=== PATIENT | male | born 1980 | race Caucasian/White ===

== ENCOUNTER 2018-03-24 03:35 | Observation (INO) ==
[2018-03-24 05:42] LABS: Baso # (Auto) 0.1 th/mm3 (0.0-0.2); Eos # (Auto) 0.3 th/mm3 (0.0-0.4); Eos % (Auto) 4.5 % (0.0-4.0); Hematocrit 48.1 % (39.0-51.0); Hemoglobin 15.4 gm/dL (13.0-17.0); Lymph # (Auto) 2.3 th/mm3 (1.0-4.8); Lymph % (Auto) 30.4 % (9.0-44.0); Mean Corpuscular Hemoglobin 26.1 pg (27.0-34.0); Mean Corpuscular Volume 81.6 fL (80.0-100.0); Mean Platelet Volume 9.5 fL (7.0-11.0); Mono # (Auto) 0.5 th/mm3 (0.0-0.9); Mono % (Auto) 5.9 % (0.0-8.0); Neut # (Auto) 4.5 th/mm3 (1.8-7.7); Neut % (Auto) 58.2 % (16.0-70.0); Platelet Count 170 th/mm3 (150-450); Red Cell Distribution Width 13.5 % (11.6-17.2); White Blood Count 7.7 th/mm3 (4.0-11.0)
--- NOTE | 2018-03-24 05:58 | XR ---
EXAM DATE: 03/24/2018 5:26 AM EST AGE/SEX: 38 years / Male INDICATIONS: Right great toe pain, no known trauma. CLINICAL DATA: This is the patient's initial encounter. Patient reports that signs and symptoms have been present for 3 days and indicates a pain score of 6/10. MEDICAL/SURGICAL HISTORY: Diabetes mellitus type II. None. COMPARISON: . FINDINGS: No fracture is seen. The bones and joints are normally aligned. There is a calcaneal spur at the Achi lles attachment site. There is some spurring at the dorsal aspect of the talus. Soft tissues are unre markable. CONCLUSION: No acute abnormality is seen. Electronically signed by: Ryne Valdivia MD Board Certified Radiologist 03/24/2018 5:57 AM EST
[2018-03-24 06:23] LABS: Chloride 106 meq/L (98-107); Potassium 3.8 meq/L (3.5-5.1); Sodium 138 meq/L (136-145)
[2018-03-24 06:25] LABS: Calcium 8.4 mg/dL (8.5-10.1)
[2018-03-24 06:26] LABS: Anion Gap 6 meq/L (5-15); Blood Urea Nitrogen 15 mg/dL (7-18); Carbon Dioxide 26.1 meq/L (21.0-32.0); Glucose,Random 126 mg/dL (74-106)
[2018-03-24 06:29] LABS: C-Reactive Protein 0.63 mg/dL (0.00-0.30); Glomerular Filtration Rate Greater Than 89 mL/min (>89)
--- NOTE | 2018-03-24 06:39 | ED ---
HPI General Chief complaint: Extremity Injury, Lower Stated complaint: RT big toe turning purple/pain x 3 days Time Seen by Provider: 03/24/18 04:10 Source: patient Mode of arrival: ambulatory Limitations: no limitations History of Present Illness HPI narrative: 38-year-old male presents emergency department complaining of pain in his right great toe and second and third toe with purple discoloration and paresthesias and tingling. States this came on fairly abruptly over the past 2-3 days. Never had trouble with a history of type 2 diabetes. No history of neuropathy. No history of vascular disease. No other complaints. Related Data Home Medications Medication Instructions Recorded Confirmed metformin 850 mg PO BID 03/24/18 03/24/18 Allergies Allergy/AdvReac Type Severity Reaction Status Date / Time No Known Allergies Allergy Verified 03/24/18 05:00 Review of Systems ROS: all other systems reviewed are negative [facility] Medical History Medical History Diabetes (Acute) Social History Social History Substance History: No History of Abuse Smoking Status: Former smoker How Often Do You Have a Drink Containing Alcohol: Never Recent Travel in [facility] within the Last 8 Weeks: No Recent Out of Country Travel within the Last 8 Weeks: No Immunization History Tetanus Immunization: <5 Years Exam Narrative Exam Narrative: GENERAL: Well-appearing 38-year-old man, no acute distress. SKIN: Focused skin assessment warm/dry. HEAD: Atraumatic. Normocephalic. EYES: Pupils equal and round. No scleral icterus. No injection or drainage. ENT: No nasal bleeding or discharge. Mucous membranes pink and moist. NECK: Trachea midline. No JVD. CARDIOVASCULAR: Regular rate and rhythm. No murmur appreciated. RESPIRATORY: No accessory muscle use. Clear to auscultation. Breath sounds equal bilaterally. GASTROINTESTINAL: Abdomen soft, non-tender, nondistended. Hepatic and splenic margins not palpable. MUSCULOSKELETAL: Purplish bluish discoloration to the great toe with second and third toe. The toe itself, the capillary refill appears brisk possibly due to rubor, but is sluggish just proximal to the purplish discoloration. DP pulse on the right is strong with Doppler. Unable to appreciate digital pulses on the first 3 digits. On the left, unaffected foot, digital pulses are easily appreciated with the Doppler. NEUROLOGICAL: Awake and alert. No obvious cranial nerve deficits. Motor grossly within normal limits. Normal speech. PSYCHIATRIC: Appropriate mood and affect; insight and judgment normal. Course Initial Documented Vital Signs Temperature 97.8 F 03/24/18 03:39 Pulse Rate 90 03/24/18 03:39 Respiratory Rate 18 03/24/18 03:39 Blood Pressure 169/104 H 03/24/18 03:39 Pulse Oximetry 96 03/24/18 03:39 Last Documented Vital Signs Temperature 97.8 F 03/24/18 03:39 Pulse Rate 90 03/24/18 03:39 Respiratory Rate 18 03/24/18 03:39 Blood Pressure 169/104 H 03/24/18 03:39 Pulse Oximetry 96 03/24/18 03:39 Medical Decision Making MDM Narrative Medical decision making narrative: 38-year-old man with what appears to be vascular insufficiency in this first through third toes. Etiology is unclear. Possibly embolic phenomenon. Possibly but less likely atherosclerotic phenomenon. This does not seem to be Shahab's phenomenon. X-ray does not show any kind of occult injury. Discussed with podiatry. Will need further eval for possible sources of insufficiency, especially given his young age. Plan on admission. Medical Screen Exam Complete: Yes Emergency Medical Condition: Yes Lab Data Lab results reviewed: Yes I reviewed the patient's lab results. Result diagrams: 03/24/18 05:23 03/24/18 06:08 Lab Results 03/24/18 03/24/18 03/24/18 Range/Units 03:55 05:23 06:08 CBC w Diff Auto diff final WBC 7.7 (4.0-11.0) th/mm3 RBC 5.90 (4.50-5.90) mil/mm3 Hgb 15.4 (13.0-17.0) gm/dL Hct 48.1 (39.0-51.0) % MCV 81.6 (80.0-100.0) fL MCH 26.1 L (27.0-34.0) pg MCHC 32.0 (32.0-36.0) % RDW 13.5 (11.6-17.2) % Plt Count 170 (150-450) th/mm3 MPV 9.5 (7.0-11.0) fL Neut % (Auto) 58.2 (16.0-70.0) % Lymph % (Auto) 30.4 (9.0-44.0) % [place] % (Auto) 5.9 (0.0-8.0) % Eos % (Auto) 4.5 H (0.0-4.0) % Baso % (Auto) 1.0 (0.0-2.0) % Neut # (Auto) 4.5 (1.8-7.7) th/mm3 Lymph # (Auto) 2.3 (1.0-4.8) th/mm3 [place] # (Auto) 0.5 (0.0-0.9) th/mm3 Eos # (Auto) 0.3 (0.0-0.4) th/mm3 Baso # (Auto) 0.1 (0.0-0.2) th/mm3 WBC Differential . Differential Comment . Sodium 138 (136-145) meq/L Potassium 3.8 (3.5-5.1) meq/L Chloride 106 (98-107) meq/L Carbon Dioxide 26.1 (21.0-32.0) meq/L Anion Gap 6 (5-15) meq/L BUN 15 (7-18) mg/dL Creatinine 0.83 (0.60-1.30) mg/dL Estimated GFR Greater than 89 (>89) mL/min POC Glucose 120 H (68-110) mg/dl Random Glucose 126 H (74-106) mg/dL Calcium 8.4 L (8.5-10.1) mg/dL C-Reactive Protein 0.63 H (0.00-0.30) mg/dL Imaging Data Radiologist's impression: Foot X-Ray 03/24/18 05:00 CONCLUSION: No acute abnormality is seen. Discharge Plan Discharge Disposition Patient Disposition: ED Admit(ED Internal Use Only) Discharge Order Discharge Orders: ED Use Only Admit Order (Routine); Ordered 03/24/18 Ordered By: Nahun Moreno Physicians Team ED Provider: Nahun Moreno Primary Care Provider: Primary Care Mariah Sanford Rxs /Orders / Referrals /Forms Prescriptions: No Action metformin 850 mg Tablet 850 mg PO BID RF: 0 Discharge Interventions Interventions: Vital Signs Last Done: 03/24/18 03:39 Status ED Status: With Doctor
[2018-03-24] MEDS ORDERED: Acetaminophen 325 MG Tablet PO PRN ×2 (06:46→16:18)
[2018-03-24] MEDS ORDERED: Bisacodyl 10 MG Supp RECTAL PRN (06:46)
[2018-03-24] MEDS ORDERED: Dextrose 50% in Water 50 ML Vial IV.PUSH PRN (06:48)
[2018-03-24] MEDS: Insulin NovoLOG Aspart Correctional Sugar Inj SQ SCH ×4 (08:35→21:25)
--- NOTE | 2018-03-24 11:05 | P.CONVS ---
History of Present Illness Service: Vascular surgery Consult date: 03/24/18 Primary Care Provider: No Primary Care Physician Chief Complaint: Right first toe discoloration History of Present Illness: 38-year-old male with insignificant past medical history. He presents with a chief complaint of 3 days history of right first toe discoloration. He also reports pain and numbness of the first great toe. He denies any claudication or rest pain. He denies any shortness of breath or chest pain. Review of Systems All other systems reviewed negative except as stated in HPI PMFSH - History History Provided By: Patient - Medical History Medical History: Medical History (Last Updated 03/24/18 @ 06:36 by Nahun Moreno MD) Diabetes - Tobacco History Second Hand Smoke Exposure: Yes Tobacco Use In Past 30 Days: Yes Smoking Status: Former smoker Tobacco Type: Cigarettes - Alcohol History How Often Do You Have a Drink Containing Alcohol: 2 to 4 times a month - Substance Use History Substance History: No History of Abuse - Travel History Recent Travel in the [place] Within the Last 8 Weeks: Yes Recent Travel Out of the Country Within the Last 8 Weeks: No - Immunization History Tetanus Immunization: <5 Years Medications and Allergies Active Medications: Active Medications Acetaminophen (Tylenol) 650 mg PO Q4H PRN PRN Reason: Temp > 100.4 Last Admin: 03/24/18 10:25 Dose: 650 mg Bisacodyl (Dulcolax Supp) 10 mg RECTAL DAILY PRN PRN Reason: SEVERE CONSITIPATION Dextrose (D50w Vial) 50 ml IV.PUSH UNSCH PRN PRN Reason: PER HYPOGLYCEMIA PROTOCOL Glucagon (Glucagon Inj) 1 mg OTHER PRN PRN PRN Reason: for Hypoglycemia Protocol Insulin Aspart (Novolog Insulin Correctional Sugar Inj) 0 unit SQ ACHS AND 3AM MARY; Protocol Last Admin: 03/24/18 08:35 Dose: Not Given Ondansetron HCl (Zofran Inj) 4 mg IV.PUSH Q6H PRN PRN Reason: NAUSEA OR VOMITING Sennosides (Senokot) 17.2 mg PO Q12H PRN PRN Reason: Moderate Constipation Sodium Chloride (Ns Flush) 2 ml IV.FLUSH BID MARY Last Admin: 03/24/18 10:26 Dose: 2 ml Sodium Chloride (Ns Flush) 2 ml IV.FLUSH PRN PRN PRN Reason: FLUSH AFTER USING IV ACCESS Allergies Allergy/AdvReac Type Severity Reaction Status Date / Time No Known Allergies Allergy Verified 03/24/18 05:00 Home Medications Medication Instructions Recorded Confirmed Type metformin 850 mg PO BID 03/24/18 03/24/18 History Physical Exam Vital Signs / I&O: Vital Signs 03/24/18 03:39 03/24/18 08:34 03/24/18 08:50 Temperature 97.8 F Pulse Rate 90 81 Respiratory Rate 18 18 Blood Pressure 169/104 H 198/101 H 164/87 H Pulse Oximetry 96 98 03/24/18 10:02 Temperature 97.8 F Pulse Rate 67 Respiratory Rate 20 Blood Pressure 151/90 H Pulse Oximetry 97 Intake & Output 03/23/18 03/24/18 03/24/18 18:59 06:59 18:59 Weight 142 kg 141.974 kg Other: Weight On Admission 142 kg Neuro: Alert awake oriented x3 with no neurological deficits. HEENT: Normocephalic atraumatic Neck: Supple Heart: S1-S2 Lungs: Clear to auscultation bilateral Abdomen: Soft nontender nondistended Vascular: +2 palpable left DP, PT. +1 palpable right dorsalis pedis, posterior tibial pulse. No evidence of popliteal or femoral aneurysms palpated bilaterally. Extremities: Right first with livedo reticularis and bluish discoloration Laboratory Results - last 24 hr 03/24/18 03/24/18 03/24/18 03:55 05:23 05:23 CBC w Diff Auto diff final WBC 7.7 RBC 5.90 Hgb 15.4 Hct 48.1 MCV 81.6 MCH 26.1 L MCHC 32.0 RDW 13.5 Plt Count 170 MPV 9.5 Neut % (Auto) 58.2 Lymph % (Auto) 30.4 [place] % (Auto) 5.9 Eos % (Auto) 4.5 H Baso % (Auto) 1.0 Neut # (Auto) 4.5 Lymph # (Auto) 2.3 [place] # (Auto) 0.5 Eos # (Auto) 0.3 Baso # (Auto) 0.1 WBC Differential . Differential Comment . ESR 1 Sodium Potassium Chloride Carbon Dioxide Anion Gap BUN Creatinine Estimated GFR POC Glucose 120 H Random Glucose Calcium C-Reactive Protein 03/24/18 03/24/18 06:08 08:29 CBC w Diff WBC RBC Hgb Hct MCV MCH MCHC RDW Plt Count MPV Neut % (Auto) Lymph % (Auto) [place] % (Auto) Eos % (Auto) Baso % (Auto) Neut # (Auto) Lymph # (Auto) [place] # (Auto) Eos # (Auto) Baso # (Auto) WBC Differential Differential Comment ESR Sodium 138 Potassium 3.8 Chloride 106 Carbon Dioxide 26.1 Anion Gap 6 BUN 15 Creatinine 0.83 Estimated GFR Greater than 89 POC Glucose 182 H Random Glucose 126 H Calcium 8.4 L C-Reactive Protein 0.63 H Impressions Foot X-Ray 03/24/18 05:00 CONCLUSION: No acute abnormality is seen. 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 No evidence of acute limb ischemia. I will obtain a CT angiography of the chest abdomen pelvis with runoff to evaluate for atherosclerotic disease versus aneurysmal disease. Care for allowing us to participate in this patient care, if you have any questions please do not hesitate to call my cell phone Ghassan Muñoz MD [facility] [phone]
--- NOTE | 2018-03-24 13:07 | CT ---
EXAM DATE: 03/24/2018 12:25 PM EST AGE/SEX: 38 years / Male INDICATIONS: Vascular insufficiency right foot. CLINICAL DATA: This is the patient's initial encounter. Patient reports that signs and symptoms have been present for 3 days and indicates a pain score of 6/10. MEDICAL/SURGICAL HISTORY: Diabetes. None. RADIATION DOSE: 9.73 CTDI (mGy) COMPARISON: No prior exams available for comparison. TECHNIQUE: Volumetric scanning was performed using a multi-row detector CT scanner during bolus infu emeka of 100 ml Omnipaque 350 (iohexol) nonionic water-soluble contrast as a single exam dose. The data was post processed with a variety of visualization algorithms including full volume maximum inte nsity projection, multi-planar sliding thin slab reformation, curved planar reformation, and surface rendering techniques. Using automated exposure control and adjustment of the mA and/or kV according to patient size, radiation dose was kept as low as reasonably achievable to obtain optimal diagnostic quality images. DICOM format image data is available electronically for review and comparison. FINDINGS: Abdominal aorta: The celiac and SMA origins are widely patent. There are single renal arteries bilate rally. The renal arteries are widely patent. The infrarenal aorta is normal in caliber. The KASEY is pa tent. There is no significant atherosclerotic disease identified. Pelvic circulation: The common iliac, internal iliac and external iliac circulation is widely patent bilaterally. Of note, there is reconstruction artifact on the 3-D reconstructed images. Right leg: The right common femoral and profunda femoral are widely patent. Examination of the superf icial femoral demonstrates a focal subtotal occlusion at the junction of the distal SFA and above-kne e popliteal. The popliteal returns to a more normal caliber in its proximal segment. The exam does de monstrate a focal area of high-grade stenosis in its below-knee segment as well. Distally, all 3 trif urcation vessels are patent. Left leg: The left common femoral, profunda femoral, superficial femoral and popliteal arteries are w idely patent. Distally, all 3 trifurcation vessels are patent down into the foot. CONCLUSION: 1. The examination demonstrates a focal high-grade stenosis/subtotal occlusion in the right superfic ial femoral at its junction with the above-knee popliteal. In addition, there is a second area of hig h-grade stenosis in the below-knee popliteal on the right as well. There is no other significant vasc ular disease identified. The lack of other significant disease elsewhere would suggest this probably represents atherosclerotic disease however in a patient of this age an underlying vasculitis would be a consideration as well. No findings to indicate an embolic source are identified. Electronically signed by: Delta Bain MD Board Certified Radiologist 03/24/2018 1:06 PM EST
[2018-03-24] MEDS ORDERED: Naloxone Inj 0.4 MG/ML Vial IV.PUSH PRN (16:18)
--- NOTE | 2018-03-24 16:27 | P.HPIM ---
History of Present Illness Primary Care Physician: No Primary Care Physician Chief Complaint: Right toe pain and discoloration History of Present Illness: 38-year-old white male with a history of type 2 diabetes mellitus sent to the emergency room with a 3-day history of acute worsening pain of the right great toe with purple discoloration associated with some tingling and numbness of the second and third toes. Patient denies any trauma to the area. He had a previous history of smoking 1 pack of sugars on daily basis but quit 20 days ago. He reports his blood sugars relatively controlled well and denies a history of diabetic neuropathy. He denies any pain upon sitting or ambulating of his legs. He has not complained of associated chest pain palpitations nor any shortness of breath. He denies any abdominal pain and had no complaints of associated nausea vomiting nor any recent chills or fever. Diagnosis (1) Trash foot: (2) Blue toe syndrome of right lower extremity: Review of Systems Constitutional: Reports as per HPI, Denies body ache(s), Denies chills, Denies fever(s), Denies frequent falls and Denies headache(s) Eyes: Denies blurry vision, Denies change in vision and Denies eye pain Ears, Nose, Mouth, and Throat: Denies abnormal hearing, Denies headache(s), Denies mouth pain, Denies nasal congestion, Denies neck pain and Denies sore throat Cardiovascular: Reports as per HPI, Reports bluish discoloration of hand/feet ( Right great toe as discussed in HPI.), Denies chest pain, Denies diaphoresis, Denies syncope, Denies rapid heart rate, Denies pedal edema, Denies irregular heart rhythm, Denies palpitations and Denies dyspnea Respiratory: Denies cough and Denies dyspnea Gastrointestinal: Denies abdominal pain, Denies constipation, Denies loose stools, Denies nausea and Denies vomiting Musculoskeletal: Denies back pain, Denies myalgias, Denies arthralgias, Denies muscle weakness, Denies neck pain, Reports numbness, Denies stiffness and Reports tingling Comments: Second and third toe Skin/Breast: Denies new lesions and Denies rash Neurologic: Denies abnormal hearing, Denies headache(s), Denies focal weakness, Denies memory loss and Denies numbness Psychiatric: Denies anxiety, Denies depression and Denies memory loss Endocrine: Denies cold intolerance, Denies heat intolerance and Denies palpitations Hematologic/Lymphatic: Denies easy bleeding and Denies easy bruising PMFSH History History Provided By: Patient Medical History Medical History Diabetes (Chronic) Surgical History Surgical History No history of previous surgery (Chronic) Social History Social History Substance History: No History of Abuse Second Hand Smoke Exposure: Yes Smoking Status: Former smoker Tobacco Type: Cigarettes How Often Do You Have a Drink Containing Alcohol: 2 to 4 times a month Recent Travel in [facility] within the Last 8 Weeks: Yes Recent Out of Country Travel within the Last 8 Weeks: No Immunization History Tetanus Immunization: <5 Years Medications and Allergies Allergies Allergy/AdvReac Type Severity Reaction Status Date / Time No Known Allergies Allergy Verified 03/24/18 05:00 Home Medications Medication Instructions Recorded Confirmed Type metformin 850 mg PO BID 03/24/18 03/24/18 History Active Medications: Active Medications Acetaminophen (Tylenol) 650 mg PO Q4H PRN PRN Reason: Temp > 100.4 Last Admin: 03/24/18 10:25 Dose: 650 mg Acetaminophen (Tylenol) 650 mg PO Q6HR PRN PRN Reason: PAIN SCALE 1 TO 5 Hydrocodone Bitart/Acetaminophen ([place] 5/325) 1 tab PO Q4H PRN PRN Reason: PAIN SCALE 6 TO 10 Aspirin (Aspirin) 325 mg PO DAILY MARY Bisacodyl (Dulcolax Supp) 10 mg RECTAL DAILY PRN PRN Reason: SEVERE CONSITIPATION Dextrose (D50w Vial) 50 ml IV.PUSH UNSCH PRN PRN Reason: PER HYPOGLYCEMIA PROTOCOL Glucagon (Glucagon Inj) 1 mg OTHER PRN PRN PRN Reason: for Hypoglycemia Protocol Sodium Chloride (Ns Inj) 1,000 mls @ 100 mls/hr IV.CONT .Q10H MARY Insulin Aspart (Novolog Insulin Correctional Sugar Inj) 0 unit SQ ACHS MARY; Protocol Naloxone HCl (Narcan Inj) 0.4 mg IV.PUSH UNSCH PRN PRN Reason: SEE LABEL COMMENTS Ondansetron HCl (Zofran Inj) 4 mg IV.PUSH Q6H PRN PRN Reason: NAUSEA OR VOMITING Sennosides (Senokot) 17.2 mg PO Q12H PRN PRN Reason: Moderate Constipation Sodium Chloride (Ns Flush) 2 ml IV.FLUSH BID MARY Last Admin: 03/24/18 10:26 Dose: 2 ml Sodium Chloride (Ns Flush) 2 ml IV.FLUSH PRN PRN PRN Reason: FLUSH AFTER USING IV ACCESS Physical Exam Vital signs: Last Vital Signs Temp 98.0 F 03/24/18 16:13 Pulse 69 03/24/18 16:13 Resp 20 03/24/18 16:13 BP 176/101 H 03/24/18 16:13 Pulse Ox 97 03/24/18 16:13 Intake & Output 03/22/18 03/23/18 03/24/18 03/25/18 06:59 06:59 06:59 06:59 Weight 142 kg 141.974 kg Narrative: GENERAL: Well-nourished obese white male pleasant in no acute distress SKIN: Warm and dry. HEAD: Atraumatic. Normocephalic. EYES: Pupils equal and round. No scleral icterus. No injection or drainage. ENT: No nasal bleeding or discharge. Mucous membranes pink and moist. NECK: Trachea midline. No JVD. CARDIOVASCULAR: Regular rate and rhythm. Good 2+ Right DP and PT pulses, left DP and PT pulse. RESPIRATORY: No accessory muscle use. Clear to auscultation. Breath sounds equal bilaterally. GASTROINTESTINAL: Abdomen soft, non-tender, obese, nondistended. Normoactive bowel sounds MUSCULOSKELETAL: Right great toe with purplish discoloration, no discoloration of the second third fourth and fifth toes. NEUROLOGICAL: Awake and alert to person place time and situation. No obvious cranial nerve deficits. Motor grossly within normal limits. Five out of 5 muscle strength in the arms and legs. Normal speech. PSYCHIATRIC: Appropriate mood and affect; insight and judgment normal. Results Labs CBC & Chem 7: 03/25/18 06:40 03/25/18 06:40 Imaging Impressions Aorta w/Runoff CTA 03/24/18 00:00 CONCLUSION: 1. The examination demonstrates a focal high-grade stenosis/subtotal occlusion in the right superficial femoral at its junction with the above-knee popliteal. In addition, there is a second area of high-grade stenosis in the below-knee popliteal on the right as well. There is no other significant vascular disease identified. The lack of other significant disease elsewhere would suggest this probably represents atherosclerotic disease however in a patient of this age an underlying vasculitis would be a consideration as well. No findings to indicate an embolic source are identified. Foot X-Ray 03/24/18 05:00 CONCLUSION: No acute abnormality is seen. Caprini VTE Risk Assessment Caprini VTE Risk Assessment: No/Low Risk (score <= 1) Caprini Risk Assessment Model: Point Value = 1 Point Value = 2 Point Value = 3 Point Value = 5 Age 41-60 Minor surgery BMI > 25 kg/m2 Swollen legs Varicose veins or History of unexplained or recurrent spontaneous Oral contraceptives or hormone replacement Sepsis (< 1 month) Serious lung disease, including pneumonia (< 1 month) Abnormal pulmonary function Acute myocardial infarction Congestive heart failure (< 1 month) History of inflammatory bowel disease Medical patient at bed rest Age 61-74 Arthroscopic surgery Major open surgery (> 45 min) Laparoscopic surgery (> 45 min) Malignancy Confined to bed (> 72 hours) Immobilizing plaster cast Central venous access Age >= 75 History of VTE Family history of VTE Factor V Leiden Prothrombin [id number] Lupus anticoagulant Anticardiolipin antibodies Elevated serum homocysteine Heparin-induced thrombocytopenia Other congenital or acquired thrombophilia Stroke (< 1 month) Elective arthroplasty Hip, pelvis, or leg fracture Acute spinal cord injury (< 1 month) Prophylaxis Regimen: Total Risk Factor Score Risk Level Prophylaxis Regimen 0-1 Low Early ambulation 2 Moderate Order ONE of the following: *Sequential Compression Device (SCD) *Heparin 5000 units SQ BID 3-4 Higher Order ONE of the following medications: *Heparin 5000 units SQ TID *Enoxaparin/Lovenox 40 mg SQ daily (WT < 150 kg, CrCl > 30 mL/min) *Enoxaparin/Lovenox 30 mg SQ daily (WT < 150 kg, CrCl > 10-29 mL/min) *Enoxaparin/Lovenox 30 mg SQ BID (WT < 150 kg, CrCl > 30 mL/min) AND/OR *Sequential Compression Device (SCD) 5 or more Highest Order ONE of the following medications: *Heparin 5000 units SQ TID (Preferred with Epidurals) *Enoxaparin/Lovenox 40 mg SQ daily (WT < 150 kg, CrCl > 30 mL/min) *Enoxaparin/Lovenox 30 mg SQ daily (WT < 150 kg, CrCl > 10-29 mL/min) *Enoxaparin/Lovenox 30 mg SQ BID (WT < 150 kg, CrCl > 30 mL/min) AND *Sequential Compression Device (SCD) Assessment and Plan (1) Trash foot: Code(s): I96 - Gangrene, not elsewhere classified; I75.029 - Atheroembolism of unspecified lower extremity Status: Acute (2) Blue toe syndrome of right lower extremity: Code(s): I75.021 - Atheroembolism of right lower extremity Status: Acute Plan 38-year-old white male with a history of diabetes mellitus type 2 presents with 3-day history of acute worsening right great toe pain and discoloration Suspect blue toe syndrome rule out lower extremity ischemia CTA runoff with IV contrast discussed with Dr. Muñoz, vascular surgery, patient has a focal high-grade stenosis subtotal occlusion in the right superficial femoral above the knee popliteal and a second area of high-grade stenosis and below the knee popliteal on the right. Continue aspirin Heparin not indicated at this time per vascular surgery. He is recommending IV CT chest with IV contrast for further evaluation ESR level 4, CRP 0.63 and MALACHI to rule out vasculitis. Check fasting lipid profile Pain control. Diabetes mellitus type 2hold metformin, continue glucose monitoring with sliding scale insulin. H&P: Quality VTE Deep Vein Thrombosis/Pulmonary Embolism Present on Admission: No
[2018-03-24] MEDS: Aspirin 325 MG Tablet PO SCH (17:14)
[2018-03-24] MEDS: Sod Chloride 0.9% Inj 1,000 ML IV.CONT SCH (17:14)
--- NOTE | 2018-03-24 19:19 | MB ---
cc: Nando Alejandra DPM DATE: 03/24/2018 REASON FOR CONSULTATION: Right foot pain, purple toe with no obvious injury. HISTORY OF PRESENT ILLNESS: This is a 38-year-old male with a history of right great toe worsening over the last 2-3 days. The patient states he took a flight from out of town and when he landed, he had significant pain and discoloration of the toe. The patient has no history of neuropathy, vascular disease or type 2 diabetes. The patient was seen in the ED earlier this morning. I was notified by the ER doctor of the complaints. I recommended transfer to the [facility] for vascular evaluation. The patient says that the purple discoloration and pain have somewhat improved since this morning. PAST MEDICAL HISTORY: Recent history, diagnosed with diabetes, apparently upon this admission. ALLERGIES: NO KNOWN DRUG ALLERGIES. SOCIAL HISTORY: Previous smoker. Drinking 2-4 times a month. SUBSTANCE ABUSE: None. INPATIENT MEDICATIONS: Reviewed. He is receiving aspirin 325 p.r.n. PHYSICAL EXAMINATION: VITAL SIGNS: Temperature is 97.8, pulse rate 67, respiratory rate 20, blood pressure 151/90, saturating 97% on room air. GENERAL: This is an alert and oriented gentleman seen at bedside exhibiting nonlabored respiration. Of note, body mass index is 40. Mildly obese male. EXTREMITIES: Bilateral lower extremities are examined. There is noted to be a purple blanchable discoloration of the plantar hallux. There is pain upon palpation to the hallux and lesser digits. The foot is not cool. It has some capillary fill time; however, appears to be different to the contralateral. Pulses are palpable pulses. Sensation is intact to light touch and deep pressure. There is no pain with range of motion of proximal digits, forefoot, hindfoot or ankle. Pain appears to be more distal aspect of the right hallux and lesser digits. LABORATORY DATA: White blood cell 7.7, hemoglobin and hematocrit 15 and 48, platelet count is 170. ESR is 4. Chem-7: Sodium is 138, potassium 3.8, chloride 106, CO2 26.1, BUN is 15, creatinine 0.83. C-reactive protein is 0.72. Random glucose is 126. CTA with runoff, please see complete assessment. Focal high-grade stenosis with subtotal occlusion of the SFA at its junction with the above-knee popliteal. In addition, there is a second area of high-grade stenosis below-knee popliteal right. No other significant vascular disease. ASSESSMENT AND PLAN: Right foot blue toe syndrome, likely vascular etiology. Reviewed case with vascular. Will continue to follow the clinical. Unsure if there is a planned intervention at this point. There is no need for podiatry debridement or amputation. We will continue to follow along conservatively only. Reconsult as needed. JED Fernandez/mack , 06:21 PM , 06:28 PM
[2018-03-25] MEDS: Sod Chloride 0.9% Inj 1,000 ML IV.CONT SCH ×2 (03:22→13:57)
[2018-03-25 08:02] LABS: Baso % (Auto) 0.6 % (0.0-2.0); Eos # (Auto) 0.3 th/mm3 (0.0-0.4); Eos % (Auto) 4.9 % (0.0-4.0); Hematocrit 42.1 % (39.0-51.0); Hemoglobin 14.3 gm/dL (13.0-17.0); Lymph # (Auto) 2.1 th/mm3 (1.0-4.8); Lymph % (Auto) 32.3 % (9.0-44.0); Mean Corpuscular HGB Conc 33.9 % (32.0-36.0); Mean Corpuscular Hemoglobin 27.6 pg (27.0-34.0); Mean Corpuscular Volume 81.4 fL (80.0-100.0); Mean Platelet Volume 9.3 fL (7.0-11.0); Mono # (Auto) 0.5 th/mm3 (0.0-0.9); Mono % (Auto) 8.2 % (0.0-8.0); Neut # (Auto) 3.5 th/mm3 (1.8-7.7); Platelet Count 132 th/mm3 (150-450); Red Blood Count 5.17 mil/mm3 (4.50-5.90); Red Cell Distribution Width 14.1 % (11.6-17.2); White Blood Count 6.5 th/mm3 (4.0-11.0)
[2018-03-25 08:24] LABS: Anion Gap 6 meq/L (5-15); Blood Urea Nitrogen 11 mg/dL (7-18); Calcium 8.1 mg/dL (8.5-10.1); Carbon Dioxide 27.2 meq/L (21.0-32.0); Chloride 107 meq/L (98-107); Cholesterol 113 mg/dL (120-200); Glomerular Filtration Rate Greater Than 89 mL/min (>89); Glucose,Random 118 mg/dL (74-106); Sodium 140 meq/L (136-145)
[2018-03-25 08:25] LABS: Chol/HDL Ratio 3.41 Ratio; HDL Cholesterol 33.1 mg/dL (40.0-60.0); LDL Cholesterol,Calculated 65 mg/dL (0-99); Triglycerides 75 mg/dL (42-150)
[2018-03-25] MEDS: Insulin NovoLOG Aspart Correctional Sugar Inj SQ SCH ×4 (09:12→22:10)
[2018-03-25] MEDS: Aspirin 325 MG Tablet PO SCH (09:13)
--- NOTE | 2018-03-25 10:05 | P.PNVS ---
Subjective Subjective/Hospital Course: doing well no acute issues right foot pain resolved Objective Vital Signs / I&O: Vital Signs 03/24/18 10:02 03/24/18 11:55 03/24/18 16:13 Temperature 97.8 F 98.1 F 98.0 F Pulse Rate 67 67 69 Respiratory Rate 20 20 20 Blood Pressure 151/90 H 174/98 H 176/101 H Pulse Oximetry 97 97 97 03/24/18 17:45 03/24/18 20:00 03/25/18 00:00 Temperature 98.3 F 96.9 F L 97.6 F Pulse Rate 64 71 63 Respiratory Rate 20 18 22 Blood Pressure 144/79 H 169/84 H 155/88 H Pulse Oximetry 95 95 97 03/25/18 04:00 03/25/18 08:00 Temperature 96.3 F L 97.6 F Pulse Rate 65 67 Respiratory Rate 18 16 Blood Pressure 169/90 H 183/107 H Pulse Oximetry 96 96 Intake & Output 03/24/18 03/25/18 03/25/18 18:59 06:59 18:59 Intake Total 1480 / 1480 Balance 1480 / 1480 Weight 141.974 kg Intake: IV 1000 / 1000 NS Inj 1,000 ML @ 100 mls/hr IV 1000 / 1000 .CONT .Q10H MARY Rx#:[id number] Oral 480 / 480 Other: # Voids 1 2 Weight On Admission 142 kg Physical Exam: Right first toe discoloration resolving +1 palpable R PT , DP Laboratory Results - last 24 hr 03/24/18 03/24/18 03/24/18 14:14 15:03 15:03 WBC RBC Hgb Hct MCV MCH MCHC RDW Plt Count MPV Neut % (Auto) Lymph % (Auto) Boundary % (Auto) Eos % (Auto) Baso % (Auto) Neut # (Auto) Lymph # (Auto) Boundary # (Auto) Eos # (Auto) Baso # (Auto) WBC Differential Differential Comment ESR 4 Sodium Potassium Chloride Carbon Dioxide Anion Gap BUN Creatinine Estimated GFR POC Glucose 100 Random Glucose Calcium C-Reactive Protein 0.72 H Triglycerides Cholesterol LDL Cholesterol, Calc HDL Cholesterol Cholesterol/HDL Ratio 03/24/18 03/24/18 03/25/18 17:17 21:18 06:40 WBC 6.5 RBC 5.17 Hgb 14.3 Hct 42.1 MCV 81.4 MCH 27.6 MCHC 33.9 RDW 14.1 Plt Count 132 L MPV 9.3 Neut % (Auto) 54.0 Lymph % (Auto) 32.3 Boundary % (Auto) 8.2 H Eos % (Auto) 4.9 H Baso % (Auto) 0.6 Neut # (Auto) 3.5 Lymph # (Auto) 2.1 Boundary # (Auto) 0.5 Eos # (Auto) 0.3 Baso # (Auto) 0.0 WBC Differential . Differential Comment Auto diff final ESR Sodium Potassium Chloride Carbon Dioxide Anion Gap BUN Creatinine Estimated GFR POC Glucose 103 151 H Random Glucose Calcium C-Reactive Protein Triglycerides Cholesterol LDL Cholesterol, Calc HDL Cholesterol Cholesterol/HDL Ratio 03/25/18 03/25/18 06:40 09:10 WBC RBC Hgb Hct MCV MCH MCHC RDW Plt Count MPV Neut % (Auto) Lymph % (Auto) Boundary % (Auto) Eos % (Auto) Baso % (Auto) Neut # (Auto) Lymph # (Auto) Boundary # (Auto) Eos # (Auto) Baso # (Auto) WBC Differential Differential Comment ESR Sodium 140 Potassium 4.0 Chloride 107 Carbon Dioxide 27.2 Anion Gap 6 BUN 11 Creatinine 0.73 Estimated GFR Greater than 89 POC Glucose 113 H Random Glucose 118 H Calcium 8.1 L C-Reactive Protein Triglycerides 75 Cholesterol 113 L LDL Cholesterol, Calc 65 HDL Cholesterol 33.1 L Cholesterol/HDL Ratio 3.41 Impressions Aorta w/Runoff CTA 03/24/18 00:00 CONCLUSION: 1. The examination demonstrates a focal high-grade stenosis/subtotal occlusion in the right superficial femoral at its junction with the above-knee popliteal. In addition, there is a second area of high-grade stenosis in the below-knee popliteal on the right as well. There is no other significant vascular disease identified. The lack of other significant disease elsewhere would suggest this probably represents atherosclerotic disease however in a patient of this age an underlying vasculitis would be a consideration as well. No findings to indicate an embolic source are identified. Foot X-Ray 03/24/18 05:00 CONCLUSION: No acute abnormality is seen. Assessment and Plan - Assessment (1) Trash foot Code(s): I96 - Gangrene, not elsewhere classified; I75.029 - Atheroembolism of unspecified lower extremity Status: Acute (2) Blue toe syndrome of right lower extremity Code(s): I75.021 - Atheroembolism of right lower extremity Status: Acute - Plan Reviewed the CTA, High grade stenosis of the right SFA, most likely atherosclerotic disease vasculitis is a consideration giving the patient's age. ESR, CRP, MALACHI ordered pending CTA of the chest Ghassan Muñoz MD [facility] [phone]
--- NOTE | 2018-03-25 10:06 | P.PNIM ---
Subjective Interval history: Reports right great toe discoloration slightly improved. Pain persists. Continues to have numbness on the right second and third toes. Physical Exam Vital signs: Last Vital Signs Temp 97.6 F 03/25/18 08:00 Pulse 67 03/25/18 08:00 Resp 16 03/25/18 08:00 BP 183/107 H 03/25/18 08:00 Pulse Ox 96 03/25/18 08:00 Intake & Output 03/23/18 03/24/18 03/25/18 03/26/18 06:59 06:59 06:59 06:59 Intake Total 1480 / 1480 Balance 1480 / 1480 Weight 142 kg 141.974 kg Narrative: GENERAL: Well-nourished obese white male pleasant in no acute distress CARDIOVASCULAR: Regular rate and rhythm. Good 2+ Right DP and PT pulses, left DP and PT pulse. RESPIRATORY: No accessory muscle use. Clear to auscultation. Breath sounds equal bilaterally. MUSCULOSKELETAL: Right dorsal great toe with mild purplish discoloration, no discoloration of the second third fourth and fifth toes. NEUROLOGICAL: Awake and alert to person place time and situation. No obvious cranial nerve deficits. Motor grossly within normal limits. Five out of 5 muscle strength in the arms and legs. Normal speech. Results Labs CBC & Chem 7: 03/25/18 06:40 03/25/18 06:40 Imaging Imaging: Impressions Aorta w/Runoff CTA 03/24/18 00:00 CONCLUSION: 1. The examination demonstrates a focal high-grade stenosis/subtotal occlusion in the right superficial femoral at its junction with the above-knee popliteal. In addition, there is a second area of high-grade stenosis in the below-knee popliteal on the right as well. There is no other significant vascular disease identified. The lack of other significant disease elsewhere would suggest this probably represents atherosclerotic disease however in a patient of this age an underlying vasculitis would be a consideration as well. No findings to indicate an embolic source are identified. Assessment and Plan (1) Trash foot: Code(s): I96 - Gangrene, not elsewhere classified; I75.029 - Atheroembolism of unspecified lower extremity Status: Acute (2) Blue toe syndrome of right lower extremity: Code(s): I75.021 - Atheroembolism of right lower extremity Status: Acute Plan 38-year-old white male with a history of diabetes mellitus type 2 presents with 3-day history of acute worsening right great toe pain and discoloration Suspect blue toe syndrome rule out lower extremity ischemia CTA runoff with IV contrast discussed with Dr. Muñoz, vascular surgery, patient has a focal high-grade stenosis subtotal occlusion in the right superficial femoral above the knee popliteal and a second area of high-grade stenosis and below the knee popliteal on the right. Continue aspirin Heparin not indicated at this time per vascular surgery. He is recommending IV CT thoracic aorta with IV contrast for further evaluation ESR level 4, CRP 0.63 and MALACHI currently pending to rule out vasculitis. fasting lipid profile cholesterol 113, LDL 65 Pain control. Diabetes mellitus type 2, overall controlled, [id number], hold metformin, continue glucose monitoring with sliding scale insulin. Hemoglobin A1c pending. Elevated blood pressuremay have underlying hypertension start lisinopril, Vasotec as needed for uncontrolled blood pressures Progress Note: Quality VTE Deep Vein Thrombosis/Pulmonary Embolism Present on Admission: No
[2018-03-25] MEDS: Lisinopril 10 MG Tablet PO SCH (11:18)
[2018-03-25 11:20] LABS: Hemoglobin A1c 6.7 % (4.3-6.0)
--- NOTE | 2018-03-25 15:30 | CT ---
EXAM DATE: 03/25/2018 3:06 PM EST AGE/SEX: 38 years / Male INDICATIONS: Evaluate aorta, PVD CLINICAL DATA: This is the patient's initial encounter. Patient reports that signs and symptoms have been present for 1 day and indicates a pain score of 0/10. MEDICAL/SURGICAL HISTORY: Diabetes. None. RADIATION DOSE: 6.19 CTDI (mGy) COMPARISON: No prior exams available for comparison. TECHNIQUE: Volumetric scanning was performed using a multi-row detector CT scanner during bolus infu emeka of 89 ml Omnipaque 350 (iohexol) nonionic water-soluble contrast as a single exam dose. The da ta was post processed with a variety of visualization algorithms including full volume maximum intens ity projection, multi-planar sliding thin slab reformation, curved planar reformation, and surface re ndering techniques. Using automated exposure control and adjustment of the mA and/or kV according to patient size, radiation dose was kept as low as reasonably achievable to obtain optimal diagnostic q uality images. DICOM format image data is available electronically for review and comparison. FINDINGS: The aorta has normal caliber. There is no aneurysm or dissection. Lungs are clear. No pleural or No acute findings in the liver, spleen, adrenals, kidneys or pancreas. No free fluid. No bowel obstru ction. No adenopathy. CONCLUSION: 1. Negative CTA thoracic abdominal aorta with contrast. Electronically signed by: Avtar Mittal MD Board Certified Radiologist 03/25/2018 3:29 PM EST
[2018-03-26] MEDS: Sod Chloride 0.9% Inj 1,000 ML IV.CONT SCH ×2 (00:31→10:14)
[2018-03-26 07:59] VITALS: RESP 17
--- NOTE | 2018-03-26 09:15 | P.PNVS ---
Subjective Subjective/Hospital Course: doing well no acute issues right foot pain resolved Objective Vital Signs / I&O: Vital Signs 03/25/18 12:00 03/25/18 15:53 03/25/18 19:34 Temperature 97.6 F 98.3 F 98.2 F Pulse Rate 70 75 73 Respiratory Rate 16 16 18 Blood Pressure 175/104 H 159/91 H 164/83 H Pulse Oximetry 99 97 99 03/25/18 23:23 03/26/18 04:00 03/26/18 07:58 Temperature 98.1 F 98.0 F 97.7 F Pulse Rate 61 62 68 Respiratory Rate 16 18 17 Blood Pressure 153/86 H 140/83 137/87 Pulse Oximetry 98 95 97 Intake & Output 03/25/18 03/26/18 03/26/18 18:59 06:59 18:59 Other: # Voids 5 Date of Last Bowel Movement 03/25/18 Physical Exam: Right foot discoloration resolved +2 palpable Pt pulse Laboratory Results - last 24 hr 03/25/18 03/25/18 03/25/18 06:40 09:10 13:24 POC Glucose 113 H 124 H Hemoglobin A1c 6.7 H 03/25/18 03/25/18 17:53 22:51 POC Glucose 136 H 111 H Hemoglobin A1c Impressions Aorta w/Runoff CTA 03/24/18 00:00 CONCLUSION: 1. The examination demonstrates a focal high-grade stenosis/subtotal occlusion in the right superficial femoral at its junction with the above-knee popliteal. In addition, there is a second area of high-grade stenosis in the below-knee popliteal on the right as well. There is no other significant vascular disease identified. The lack of other significant disease elsewhere would suggest this probably represents atherosclerotic disease however in a patient of this age an underlying vasculitis would be a consideration as well. No findings to indicate an embolic source are identified. Thoracic Aorta CT 03/25/18 00:00 CONCLUSION: 1. Negative CTA thoracic abdominal aorta with contrast. Assessment and Plan - Assessment (1) Trash foot Code(s): I96 - Gangrene, not elsewhere classified; I75.029 - Atheroembolism of unspecified lower extremity Status: Acute (2) Blue toe syndrome of right lower extremity Code(s): I75.021 - Atheroembolism of right lower extremity Status: Acute - Plan Patient symptoms completely resolved, he doesn't have any claudication or rest pain I reviewed the patient imaging, I believe the etiology is arthrosclerotic disease with a ruptured plaque and distal atheroembolic event I highly doubt thromboembolic event and I don't see an indication for anticoagulation Will treat the patient with ASA and statin ESR and CRP not impressively elevated. I will FU with MALACHI screening results after DC stable for DC from vascular surgery standpoint schedule FU in one month with an MARVIN Ghassan Muñoz [facility] [phone]
[2018-03-26] MEDS: Aspirin 325 MG Tablet PO SCH (10:13)
[2018-03-26] MEDS: Lisinopril 10 MG Tablet PO SCH (10:13)
[2018-03-26] MEDS: Insulin NovoLOG Aspart Correctional Sugar Inj SQ SCH ×2 (10:18→13:48)
--- NOTE | 2018-03-26 10:23 | P.DS ---
DS: Providers Date of admission: 03/24/18 06:46 Primary care physician: No Primary Care Physician Consults: 03/24/18 06:44 Consult to Podiatry Routine Consulting Provider: Nando Hood Reason for Consultation: right lower extremity discoloration/neuralgias of uncertain etiology Notified:: Office Spoke with:: ALVIN Date Notified:: 03/24/18 Time Notified:: 08:36 Ordering Provider: MALIHA Consult to Vascular Surgery Routine Consulting Provider: Ghassan Feliz Reason for Consultation: RLE PVD suspected Notified:: Physician Spoke with:: dr feliz Date Notified:: 03/24/18 Time Notified:: 07:31 Comments:: pt needs to come to main per dr feliz Ordering Provider: MALIHA Brief History from admission: 38-year-old white male with a history of type 2 diabetes mellitus sent to the emergency room with a 3-day history of acute worsening pain of the right great toe with purple discoloration associated with some tingling and numbness of the second and third toes. Patient denies any trauma to the area. He had a previous history of smoking 1 pack of sugars on daily basis but quit 20 days ago. He reports his blood sugars relatively controlled well and denies a history of diabetic neuropathy. He denies any pain upon sitting or ambulating of his legs. He has not complained of associated chest pain palpitations nor any shortness of breath. He denies any abdominal pain and had no complaints of associated nausea vomiting nor any recent chills or fever. Patient update on day of discharge: Patient reports that his right great toe discoloration is improved and pain has improved. No other complaints of chest pain or shortness of breath. Doing well. Wants to go home. DS: Diagnosis Discharge Diagnosis (1) Trash foot: Status: Acute (2) Blue toe syndrome of right lower extremity: Status: Acute (3) Hypertension: Status: Chronic DS: Summary 38-year-old white male presents to the emergency room with acute onset of 3-day history of right toe pain and discoloration along with second and third toe numbness. Vascular surgeon Dr. Feliz was consulted who advised on findings of CTA runoff with IV contrast with a focal high-grade stenosis subtotal occlusion of the right superficial femoral [id number] popliteal and a second area of high-grade stenosis and below the knee popliteal on the right. He was placed on aspirin, statin. Heparin was not indicated at this time. A CTA Thoracics was also performed which showed no acute findings. ESR level 4, CRP 0. 63 was not significantly elevated. MALACHI currently pending. Fasting lipid profile showed cholesterol 113, LDL 65. His hemoglobin A1c was 6.7. Vascular surgeon feels the etiology is likely atherosclerotic disease with a ruptured plaque and distal atheroembolic event. He is highly doubtful that this is thromboembolic event and there is no indication for anticoagulation. The patient also had elevated blood pressure readings and likely has underlying hypertension which lisinopril was prescribed. At this time, patient will transition to home and follow-up with vascular surgeon in 1 month with MARVIN and further evaluation. Time Spent with Patient Total time spent providing and/or coordinating discharge services: Less than 30 minutes Status at Discharge Functional status at discharge: independent ambulation Quality: VTE Deep Vein Thrombosis/Pulmonary Embolism Present on Admission: No Results Labs on day of discharge: Labs from last 24 hours 03/26/18 03/25/18 03/25/18 10:11 22:51 17:53 POC Glucose 172 H 111 H 136 H Hemoglobin A1c 03/25/18 03/25/18 13:24 06:40 POC Glucose 124 H Hemoglobin A1c 6.7 H Impressions ITS Impressions Aorta w/Runoff CTA 03/24/18 00:00 CONCLUSION: 1. The examination demonstrates a focal high-grade stenosis/subtotal occlusion in the right superficial femoral at its junction with the above-knee popliteal. In addition, there is a second area of high-grade stenosis in the below-knee popliteal on the right as well. There is no other significant vascular disease identified. The lack of other significant disease elsewhere would suggest this probably represents atherosclerotic disease however in a patient of this age an underlying vasculitis would be a consideration as well. No findings to indicate an embolic source are identified. Foot X-Ray 03/24/18 05:00 CONCLUSION: No acute abnormality is seen. Thoracic Aorta CT 03/25/18 00:00 CONCLUSION: 1. Negative CTA thoracic abdominal aorta with contrast. Discharge Plan Discharge Disposition Patient Disposition: Discharge Home Discharge Condition Condition: Good Discharge Order Discharge Orders: Discharge Order (Routine); Ordered 03/26/18 Ordered By: Michelle Tong Physicians Team Primary Care Provider: Primary Care Mariah Sanford Attending Provider: Michelle Tong Other Providers: Nando Hood ; Ghassan Feliz Rxs /Orders / Referrals /Forms Prescriptions: New aspirin 325 mg Tablet 325 mg PO DAILY Qty: 30 RF: 0 lisinopril 10 mg Tablet 10 mg PO DAILY Qty: 30 RF: 0 atorvastatin 20 mg Tablet 20 mg PO DAILY Qty: 30 RF: 0 Continue metformin 850 mg Tablet 850 mg PO BID RF: 0 Referrals: Primary Care Provider [Outside] - See Instructions ( Please call the physician's office to book the appointment to be seen within 1 week.) Ghassan Feliz MD [Physician] - See Instructions ( Please call the physician 's office to book the appointment to be seen in 1 month.) Primary Care Mariah Sanford [Primary Care Provider] - See Instructions Post Discharge Care Plan Care Plan Goals: Your Health Problems: blue toe syndrome Goals to Promote Your Health: * To prevent worsening of your condition * To maintain your health at the optimal level Directions to Meet Your Goals: * Take your medications as prescribed * Follow your dietary instruction * Follow activity as directed * Keep your appointments as scheduled * Take your immunizations and boosters as scheduled * If your symptoms worsen call your PCP * If no PCP go to Urgent Care or Emergency Room Smoking is dangerous to your health. Avoid second hand smoke. You may reach the 24-hour crisis hotline for domestic abuse at . Status ED Status: Left Department
[2018-03-26 11:14] LABS: Anti-Nuclear Antibody Screen Pos (Neg)
[2018-03-26 11:18] VITALS: BP 173/84; PULSE 66; TEMP 98.1; O2SAT 98
[2018-03-26 12:43] LABS: Total Protein 7.8 g/dL (6.4-8.2)
[2018-03-26 12:57] LABS: Albumin 3.9 g/dL (3.4-5.0)
[2018-03-28 15:31] LABS: Anti-Nuclear Antibody Pattern Speckled
== END 2018-03-26 13:31 | disposition home or self-care (01) ==
LOC: PHEDA 03:35 → PHED 03:35 → PHEDA 09:11 → NEPFCDU 09:41
PROVIDERS: ADMIT Family Medicine; ATTEND Family Medicine
CPT/HCPCS: 71275; 73630; 74175; 75635; 80048; 80061; 80076; 82948; 82962; 83036; 85025; 85651; 85652; 86038; 86039; 86140; 96360; 96361; 96372; 99285; G0378; J1815; J7030; Q9967